=== PATIENT | female | born 1945 | race Caucasian/White ===

== ENCOUNTER 2021-04-11 15:02 | Outpatient (CLI) | payer MEDICARE | END 2021-04-11 15:03 | disposition home or self-care (01) | LOC: CSHMAMMO 15:02 | PROVIDERS: ATTEND Family Medicine | DX: Z12.31 Encounter for screening mammogram for malignant neoplasm of breast (principal) | CPT/HCPCS: 77063; 77067 ==

== ENCOUNTER 2022-05-02 13:42 | Outpatient (CLI) | payer MEDICARE | END 2022-05-02 13:43 | disposition home or self-care (01) | LOC: CSHMAMMO 13:42 | PROVIDERS: ATTEND Family Medicine | DX: Z12.31 Encounter for screening mammogram for malignant neoplasm of breast (principal) | CPT/HCPCS: 77063; 77067 ==

== ENCOUNTER 2023-01-01 07:52 | Outpatient (CLI) | payer MEDICARE | END 2023-01-01 07:53 | disposition home or self-care (01) | LOC: CSHMRI 07:52 | PROVIDERS: ATTEND Psychiatry & Neurology Neurology | DX: R25.1 Tremor, unspecified (principal); G31.89 Other specified degenerative diseases of nervous system | CPT/HCPCS: 70551 ==